=== PATIENT | female | born 1985 | race Two or more races ===

== ENCOUNTER 2016-12-02 23:45 | Emergency (ER) | payer OTHER ==
[~2016-12-02] VITALS: Ht 180.3 cm; Wt 75.3 kg
[2016-12-03] MEDS ORDERED: IBUPROFEN 800 MG TABLET PO ONE (00:15)
[2016-12-03] MEDS ORDERED: ONDANSETRON ODT 4 MG TAB.RAPDIS SL ONE (00:15)
--- NOTE | 2016-12-03 00:26 | NUR ---
Patient discharged to home in stable conditon. Written and verbal after care instructions given. Patient verbalizes understanding of instructions.
[2016-12-03] MEDS ORDERED: ONDANSETRON ODT 4 MG TAB.RAPDIS ONE ×2 (00:35)
[2016-12-03] MEDS ORDERED: IBUPROFEN 800 MG TABLET ONE (00:35)
== END 2016-12-03 00:29 | disposition home or self-care (01) ==
LOC: ER 23:58
DX: R51 Headache (principal)
CPT/HCPCS: 99283; A4663; Q0162 ×2